=== PATIENT | male | born 1935 | race Caucasian/White ===

== ENCOUNTER 2017-06-01 08:09 | Day surgery (SDC) | payer MEDICARE, MEDICAID ==
[2017-06-01 08:28] VITALS: BMI 30.7
[2017-06-01] MEDS ORDERED: Propofol 10 mg/ml Inj (20 ML) ONE (11:04)
[2017-06-01] MEDS ORDERED: Lactated Ringer's 500 ML IV SCH (11:15)
[2017-06-01] MEDS ORDERED: Lidocaine Hydrochloride 5 ML INJ ONE (11:23)
[2017-06-01 12:01] VITALS: TEMP 97.3
[2017-06-01 12:45] VITALS: O2SAT 100
[2017-06-01 13:05] VITALS: BP 118/74; PULSE 62; RESP 10
== END 2017-06-01 12:50 | disposition home or self-care (01) ==
LOC: C.ENDO 08:09
PROVIDERS: ATTEND Internal Medicine Gastroenterology
DX: K21.0 Gastro-esophageal reflux disease with esophagitis (principal); Z12.11 Encounter for screening for malignant neoplasm of colon; K29.50 Unspecified chronic gastritis without bleeding; K63.5 Polyp of colon; K44.9 Diaphragmatic hernia without obstruction or gangrene; K57.30 Diverticulosis of large intestine without perforation or abscess without bleeding; K64.1 Second degree hemorrhoids; I10 Essential (primary) hypertension; E78.5 Hyperlipidemia, unspecified; Z85.46 Personal history of malignant neoplasm of prostate
CPT/HCPCS: 43239; 45385; 88305; J2704; J7120